=== PATIENT | female | born 1985 | race Caucasian/White ===

== ENCOUNTER → 2021-05-25 | Outpatient (CLI) | payer OTHER ==
[~2021-05-25] MED LIST: ATIVAN 1MG TABLE1 MG PO; BENADRYL25 MG PO; METHOCARBAMOL500 MG PO; NEURONTIN 100100 MG PO; PEPCID20 MG PO; ROXICODONE5 MG PO; TYLENOL 500 MG500 MG PO; TYLENOL EXTRA500 MG PO
[2021-05-25 12:12] LABS: HEMOGLOBIN 15.5 gm/dl (12.3-15.3); RED BLOOD COUNT 4.7 M/UL (4.00-5.10); WHITE BLOOD COUNT 14.2 K/UL (4.5-11.0)
== END ==
LOC: US 08:30
PROVIDERS: Internal Medicine Hematology & Oncology
DX: C18.7 Malignant neoplasm of sigmoid colon (principal); C77.2 Secondary and unspecified malignant neoplasm of intra-abdominal lymph nodes; F17.210 Nicotine dependence, cigarettes, uncomplicated; R18.8 Other ascites
CPT/HCPCS: 36415; 76700; 85027; 85610; 85730

== ENCOUNTER → 2021-05-27 | Outpatient (CLI) | payer OTHER | LOC: CT 10:30 | DX: C18.7 Malignant neoplasm of sigmoid colon (principal); C77.2 Secondary and unspecified malignant neoplasm of intra-abdominal lymph nodes; F17.210 Nicotine dependence, cigarettes, uncomplicated | CPT/HCPCS: 71260; Q9967 ==

== ENCOUNTER → 2021-06-01 | Outpatient (CLI) | payer OTHER | END | disposition home or self-care (01) | LOC: US 05-25 11:00 | PROC: 0W9G3ZZ Drainage of Peritoneal Cavity, Percutaneous Approach (ICD-10-PCS; principal; 2021-06-01) | DX: R18.8 Other ascites (principal); F17.210 Nicotine dependence, cigarettes, uncomplicated; Z85.038 Personal history of other malignant neoplasm of large intestine; Z92.21 Personal history of antineoplastic chemotherapy ==

== ENCOUNTER → 2021-10-05 | Outpatient (CLI) | payer OTHER | LOC: CT 10-04 13:30 | DX: C18.7 Malignant neoplasm of sigmoid colon (principal); C77.2 Secondary and unspecified malignant neoplasm of intra-abdominal lymph nodes; F17.210 Nicotine dependence, cigarettes, uncomplicated; R18.8 Other ascites; N13.30 Unspecified hydronephrosis | CPT/HCPCS: Q9967 ==

== ENCOUNTER → 2022-01-06 | Outpatient (CLI) | payer OTHER ==
[2022-01-06 12:56] LABS: HEMOGLOBIN 15.3 gm/dl (12.3-15.3); RED BLOOD COUNT 4.71 M/UL (4.00-5.10); WHITE BLOOD COUNT 8.7 K/UL (4.5-11.0)
[2022-01-06 13:22] LABS: BUN/CREATININE RATIO 20 (0-10)
[2022-01-07 04:08] LABS: CANCER ANTIGEN (CA) 125 7.2 U/mL (0.0-38.1); CEA 1.6 ng/mL (0.0-4.7)
== END ==
LOC: CT 12:23
PROVIDERS: Internal Medicine Hematology & Oncology
DX: C18.7 Malignant neoplasm of sigmoid colon (principal); C77.2 Secondary and unspecified malignant neoplasm of intra-abdominal lymph nodes; F17.210 Nicotine dependence, cigarettes, uncomplicated; R18.8 Other ascites; R91.1 Solitary pulmonary nodule; K59.00 Constipation, unspecified
CPT/HCPCS: 36415; 71260; 80053; 82378; 85027; 86304; Q9967